=== PATIENT | female | born 1965 | race Caucasian/White ===

== ENCOUNTER 2019-01-02 22:47 | Emergency (ER) | payer MEDICAID, OTHER ==
[2019-01-02 23:20] VITALS: TEMP 98.6; O2SAT 99
[2019-01-02] MEDS ORDERED: Silver Nitrate Topical - Stick TOP ONE (23:48)
[2019-01-02] MEDS ORDERED: Silver Nitrate Topical - Stick ONE (23:54)
[2019-01-03 00:36] LABS: BASO % 0.3 % (0.0-2.0); EOS # 0.2 K/uL (0.0-0.7); EOS % 2.4 % (0.0-4.0); LYMPH # 1.6 K/uL (1.0-4.3); LYMPH % 18.6 % (20.0-40.0); MEAN CELL VOLUME 85.5 fl (81.0-99.0); MEAN CORPUSCULAR HEMOGLOBIN 29.2 pg (27.0-31.0); MEAN CORPUSCULAR HGB CONC 34.1 g/dL (33.0-37.0); MEAN PLATELET VOLUME 9.2 fl (7.2-11.7); MONO # 0.6 K/uL (0.0-0.8); MONO % 6.6 % (0.0-10.0); NEUT # 6.1 K/uL (1.8-7.0); NEUT % 72.1 % (50.0-75.0); RBC 4.8 Mil/uL (3.80-5.20); RED CELL DISTRIBUTION WIDTH 12.8 % (11.5-14.5); WHITE BLOOD COUNT 8.4 K/uL (4.8-10.8)
[2019-01-03 00:47] LABS: ALB/GLOB RATIO 1.2 (1.0-2.1); ALBUMIN 4.7 g/dL (3.5-5.0); ALT/SGPT 42 U/L (9-52); AST/SGOT 50 U/L (14-36); BLOOD UREA NITROGEN 19 mg/dl (7-17); CALCIUM 9.2 mg/dL (8.4-10.2); GFR NON-AFRICAN AMERICAN > 60
--- NOTE | 2019-01-03 02:23 | ED PDOC ---
HPI: General Adult Time Seen by Provider: 01/02/19 23:35 Chief Complaint (Nursing): ENT Problem Chief Complaint (Provider): ENT Problem History Per: Patient History/Exam Limitations: no limitations Onset/Duration Of Symptoms: Days Current Symptoms Are (Timing): Still Present Additional Complaint(s): 53 y/o female presents to the ED for evaluation of atraumatic left nostril bleeding, onset two hours ago. Patient states she has been unable to stop bleeding despite pressure. Patient has a history of HTN but has not taken medications for over four years. Patient reports she does not remember name of medications she previously took. Otherwise, patient denies head injury, chest pain, shortness of breath, vision changes, headache, abdominal pain and anticoagulant use. PMD: NO provider Past Medical History Reviewed: Historical Data, Nursing Documentation, Vital Signs Vital Signs: Last Vital Signs Temp 98.6 F 01/02/19 23:17 Pulse 97 H 01/02/19 23:17 Resp 16 01/02/19 23:17 BP 181/110 H 01/02/19 23:17 Pulse Ox 99 01/02/19 23:17 Primary Care Provider: FAMILY PROVIDER,NO - Medical History PMH: HTN (uncompliant), Hyperlipidemia Denies: Chronic Kidney Disease - Surgical History Surgical History: No Surg Hx - Family History Family History: States: Unknown Family Hx - Immunization History Hx Tetanus Toxoid Vaccination: No Hx Influenza Vaccination: No Hx Pneumococcal Vaccination: No - Home Medications Home Medications: Ambulatory Orders Medication Instructions Recorded Atorvastatin Calcium [Lipitor] 40 mg PO DAILY 04/29/15 Hydrochlorothiazide [HCTZ] 25 mg PO DAILY 04/29/15 Lisinopril [Zestril] 5 mg PO DAILY #7 tab 01/03/19 - Allergies Allergies/Adverse Reactions: Allergies Allergy/AdvReac Type Severity Reaction Status Date / Time No Known Allergies Allergy Verified 01/02/19 23:16 Review of Systems ROS Statement: Except As Marked, All Systems Reviewed And Found Negative ENT: Positive for: Other (nose bleed) Physical Exam - Reviewed Nursing Documentation Reviewed: Yes Vital Signs Reviewed: Yes - Physical Exam Appears: Positive for: No Acute Distress Head Exam: Positive for: ATRAUMATIC, NORMOCEPHALIC Skin: Positive for: Normal Color, Warm, Dry ENT: Positive for: Pharynx Is (clear, no bleeding), Other (minimal bleeding no vincent from the left nostril. Bleeding site identified in the anterior left nasal septum, no septal hematomabialterally. ) Cardiovascular/Chest: Positive for: Regular Rate, Rhythm. Negative for: Murmur Respiratory: Positive for: Normal Breath Sounds. Negative for: Respiratory Distress Gastrointestinal/Abdominal: Positive for: Normal Exam, Soft. Negative for: Tenderness Neurological/Psych: Positive for: Awake, Alert, Oriented (x3) - Laboratory Results Result Diagrams: 01/03/19 00:30 01/03/19 00:30 Lab Results: Total Bilirubin 0.4 mg/dl (0.2-1.3) 01/03/19 00:30 AST 50 U/L (14-36) H 01/03/19 00:30 ALT 42 U/L (9-52) 01/03/19 00:30 Alkaline Phosphatase 110 U/L (38-126) 01/03/19 00:30 Total Protein 8.6 G/DL (6.3-8.2) H 01/03/19 00:30 Albumin 4.7 g/dL (3.5-5.0) 01/03/19 00:30 Globulin 4.0 gm/dL (2.2-3.9) H 01/03/19 00:30 Albumin/Globulin Ratio 1.2 (1.0-2.1) 01/03/19 00:30 - ECG O2 Sat by Pulse Oximetry: 99 (RA) Pulse Ox Interpretation: Normal - Progress ED Course And Treament: Repeat BP: 148/91 Medical Decision Making Medical Decision Making: Time: 2347 Impression: Nose Bleed Plan: -- EKG -- CMP -- CBC with Differentials -- Silver Nitrate 1 swa TOP -- Lisinopril 10 mg PO -- Shrimp Trawler Captain -- IV Insertion -- Silver nitrate applied into bleeding site of left nostril. Bleeding stopped. Patient reports of feeling much better. Patient advised to follow up with [facility] for evaluation to start on low salt diet. Scribe Attestation: Documented by Ever Leyva, acting as a scribe for Dhiraj Giron PA-C. Provider Scribe Attestation: All medical record entries made by the Scribe were at my direction and personally dictated by me. I have reviewed the chart and agree that the record accurately reflects my personal performance of the history, physical exam, medical decision making, and the department course for this patient. I have also personally directed, reviewed, and agree with the discharge instructions and disposition. Disposition - Clinical Impression Clinical Impression: Epistaxis, Hypertension - Patient ED Disposition Is Patient to be Admitted: No - Disposition [facility]errals: [facility] [Outside] Joon Martin MD [Staff Provider] - Disposition: Routine/Home Disposition Time: 02:23 Condition: IMPROVED Additional Instructions: FOLLOW UP WITH [facility] FOR FURTHER EVALUATION RETURN TO ED IMMEDIATELY IF SYMPTOMS WORSEN Prescriptions: Lisinopril [Zestril] 5 mg PO DAILY #7 tab Instructions: High Blood Pressure (DC), Nosebleeds (DC) Forms: [facility] (Slovak) Print Language: KYRGYZ
[2019-01-03 06:47] VITALS: BP 131/64; PULSE 72; RESP 18
== END 2019-01-03 02:30 | disposition home or self-care (01) ==
LOC: H.ER 22:47
DX: R04.0 Epistaxis (principal); I10 Essential (primary) hypertension; E78.5 Hyperlipidemia, unspecified; Z79.899 Other long term (current) drug therapy

== ENCOUNTER 2019-01-11 10:00 | Emergency (ER) | payer OTHER ==
[2019-01-11 10:07] VITALS: BP 150/90; PULSE 101; RESP 19; TEMP 97.8; O2SAT 97
[2019-01-11 10:08] VITALS: BMI 25.4
[2019-01-11] MEDS ORDERED: Silver Nitrate Topical - Stick TOP ONE (10:58)
[2019-01-11] MEDS ORDERED: Silver Nitrate Topical - Stick ONE (11:06)
[2019-01-11 11:26] LABS: BASO % 0.3 % (0.0-2.0); EOS % 0.5 % (0.0-4.0); HEMOGLOBIN 13.5 g/dL (12.0-16.0); LYMPH # 1.3 K/uL (1.0-4.3); LYMPH % 17.9 % (20.0-40.0); MEAN CELL VOLUME 86.8 fl (81.0-99.0); MEAN CORPUSCULAR HEMOGLOBIN 29.7 pg (27.0-31.0); MEAN CORPUSCULAR HGB CONC 34.2 g/dL (33.0-37.0); MEAN PLATELET VOLUME 9.8 fl (7.2-11.7); MONO # 0.4 K/uL (0.0-0.8); MONO % 5.7 % (0.0-10.0); NEUT # 5.6 K/uL (1.8-7.0); NEUT % 75.6 % (50.0-75.0); NRBC % 0.1 % (0.0-0.0); RBC 4.54 Mil/uL (3.80-5.20); RED CELL DISTRIBUTION WIDTH 12.9 % (11.5-14.5); WHITE BLOOD COUNT 7.4 K/uL (4.8-10.8)
--- NOTE | 2019-01-11 11:29 | ED PDOC ---
HPI: Nose Bleed Time Seen by Provider: 01/11/19 10:34 Chief Complaint (Nursing): ENT Problem History Per: Patient, Family (daughter), Digital Printer Operator (Romanian: [id number], [id number]) Additional Complaint(s): Pt. states for the past 2 weeks she's been having intermittent L nostril bleeding. Pt. states she was initially seen on 01/03/2019 for same and has since had intermittent bleeding but on Wednesday and today bleeding has been at its worse. Bleeding has since stopped the onset today. Denies weakness, trauma, chest pain, SOB, dizziness, head injury. PMD: none Past Medical History Reviewed: Historical Data, Nursing Documentation, Vital Signs Vital Signs: Last Vital Signs Temp 97.8 F 01/11/19 10:06 Pulse 101 H 01/11/19 10:06 Resp 19 01/11/19 10:06 BP 150/90 01/11/19 10:06 Pulse Ox 97 01/11/19 10:06 Primary Care Provider: FAMILY PROVIDER,NO - Medical History PMH: HTN (uncompliant), Hyperlipidemia Denies: Chronic Kidney Disease - Surgical History Surgical History: No Surg Hx - Family History Family History: States: No Known Family Hx, Unknown Family Hx - Immunization History Hx Tetanus Toxoid Vaccination: No Hx Influenza Vaccination: No Hx Pneumococcal Vaccination: No - Home Medications Home Medications: Ambulatory Orders Medication Instructions Recorded Atorvastatin Calcium [Lipitor] 40 mg PO DAILY 04/29/15 Hydrochlorothiazide [HCTZ] 25 mg PO DAILY 04/29/15 Lisinopril [Zestril] 5 mg PO DAILY #7 tab 01/03/19 - Allergies Allergies/Adverse Reactions: Allergies Allergy/AdvReac Type Severity Reaction Status Date / Time No Known Allergies Allergy Verified 01/02/19 23:16 Review of Systems ROS Statement: Except As Marked, All Systems Reviewed And Found Negative Physical Exam - Physical Exam Appears: Positive for: Well, Non-toxic, No Acute Distress Head Exam: Positive for: ATRAUMATIC, NORMAL INSPECTION, NORMOCEPHALIC Skin: Positive for: Normal Color, Warm. Negative for: Rash Eye Exam: Positive for: Normal appearance ENT: Positive for: Pharynx Is (clear without any bleeding), Other (L nostril with dry blood noted but no active bleeding; anterior bleeding site identified in L anterior nasal septum; no septal hematoma b/l; no nasal tenderness). Negative for: Pharyngeal Erythema, Tonsillar Exudate, Tonsillar Swelling Cardiovascular/Chest: Positive for: Regular Rate, Rhythm Respiratory: Positive for: Normal Breath Sounds Neurological/Psych: Positive for: Awake, Alert, Oriented (x3) - Laboratory Results Result Diagrams: 01/11/19 11:00 01/11/19 11:00 - ECG O2 Sat by Pulse Oximetry: 97 - Progress ED Course And Treament: Labs ordered. Pt. was offered rhino rocket but refused. Currently not bleeding. Silver nitrate applied. No bleeding while in ED. Advised to f/u with [facility] or ENT for further evaluation but is to return to ED immediately if symptoms worsen. Disposition - Clinical Impression Clinical Impression: Epistaxis - Patient ED Disposition Is Patient to be Admitted: No - Disposition Referrals: [facility] [Outside] Charlie Veras MD [Staff Provider] - Disposition: Routine/Home Disposition Time: 13:00 Condition: STABLE Additional Instructions: FOLLOW UP WITH ENT FOR FURTHER EVALUATION RETURN TO ED IMMEDIATELY IF SYMPTOMS WORSEN Instructions: Nosebleeds (DC) Forms: [facility] (Indonesian) Print Language: GABONESE
[2019-01-11 11:32] LABS: INR 1.1; PROTHROMBIN TIME 12.7 Seconds (9.8-13.1)
[2019-01-11 11:35] LABS: PARTIAL THROMBOPLASTIN TIME 32.7 Seconds (25.6-37.1)
[2019-01-11 11:41] LABS: ALB/GLOB RATIO 1.2 (1.0-2.1); ALBUMIN 4.7 g/dL (3.5-5.0); ALT/SGPT 27 U/L (9-52); AST/SGOT 28 U/L (14-36); BLOOD UREA NITROGEN 10 mg/dl (7-17); CALCIUM 9.5 mg/dL (8.4-10.2); GFR NON-AFRICAN AMERICAN > 60
== END 2019-01-11 13:16 | disposition home or self-care (01) ==
LOC: SUPCPDRO 10:00 → H.ER 10:00
DX: R04.0 Epistaxis (principal); E78.5 Hyperlipidemia, unspecified; I10 Essential (primary) hypertension